=== PATIENT | male | born 2000 | race Caucasian/White ===

== ENCOUNTER 2020-11-13 01:28 | Emergency (ER) | payer BC, OTHER ==
[~2020-11-13] VITALS: Ht 185.4 cm; Wt 63.2 kg
[2020-11-13 01:31] VITALS: BP 103/64
[2020-11-13] MEDS ORDERED: LIDOCAINE GEL 2%, 5ML TP ONE (02:00)
[2020-11-13] MEDS ORDERED: BACITRACIN ZINC OINT 500U/GM, 0.9 GM TP SCH (02:00)
[2020-11-13] MEDS ORDERED: LIDOCAINE GEL 2%, 5ML ONE (02:32)
[2020-11-13] MEDS ORDERED: BACITRACIN ZINC OINT 500U/GM, 0.9 GM ONE (02:32)
== END 2020-11-13 03:04 | disposition home or self-care (01) ==
LOC: ED 01:50
DX: S40.211A Abrasion of right shoulder, initial encounter (principal); S50.311A Abrasion of right elbow, initial encounter; S30.811A Abrasion of abdominal wall, initial encounter; S50.811A Abrasion of right forearm, initial encounter; S80.211A Abrasion, right knee, initial encounter; V27.0XXA Motorcycle driver injured in collision with fixed or stationary object in nontraffic accident, initial encounter; Y93.89 Activity, other specified; Y92.410 Unspecified street and highway as the place of occurrence of the external cause; Y99.8 Other external cause status
CPT/HCPCS: 99282